=== PATIENT | female | born 1965 | race Caucasian/White ===

== ENCOUNTER 2024-09-14 11:14 | Emergency (ER) | payer MEDICARE, SELFPAY ==
[2024-09-14 11:28] VITALS: BP 131/82; PULSE 71; RESP 18; TEMP 36.7; O2SAT 97; BMI 36.1
--- NOTE | 2024-09-14 12:17 | W.ED.NAVMDI ---
HPI - Nausea/Vomiting/Diarrhea General: Chief complaint: Nausea/Vomiting/Diarrhea Stated complaint: n/v/d Time Seen by Provider: 09/14/24 12:15 History of Present Illness: 59-year-old female with a history of gastroparesis presents emergency room with complaints of persistent nausea and vomiting of bilious material. No hematochezia melena hematemesis or coffee-ground emesis. No dysuria urgency or frequency Associated nausea: Yes Associated symtoms: Reports nausea; Denies chest pain or dysuria Related Data Home Medications ?Medication ?Instructions ?Recorded ?Confirmed bupropion HCl 150 mg 24 hr tablet, 450 mg PO DAILY 09/14/24 09/14/24 extended release estradiol 1 mg tablet 1 mg PO DAILY 09/14/24 09/14/24 hydrochlorothiazide 25 mg tablet 25 mg PO DAILY 09/14/24 09/14/24 lisinopril 20 mg tablet 20 mg PO DAILY 09/14/24 09/14/24 metformin 1,000 mg tablet 1,000 mg PO BID 09/14/24 09/14/24 metoprolol succinate 25 mg 25 mg PO DAILY 09/14/24 09/14/24 tablet,extended release 24 hr nortriptyline 25 mg capsule 25 mg PO BEDTIME 09/14/24 09/14/24 ondansetron 4 mg disintegrating 4 mg PO Q6H PRN Nausea And Vomiting 09/14/24 09/14/24 tablet potassium chloride 20 mEq See Rx Instructions .Route .COMPLEX 09/14/24 09/14/24 tablet,extended release(part/cryst) rosuvastatin 5 mg tablet 5 mg PO DAILY 09/14/24 09/14/24 Previous Rx's ?Medication ?Instructions ?Recorded haloperidol 5 mg tablet 5 mg PO TID PRN nausea and 09/14/24 vomiting #10 tabs Allergies Allergy/AdvReac Type Severity Reaction Status Date / Time amoxicillin Allergy ALGY-Hives Verified 09/14/24 11:33 Cephalosporins Allergy ALGY-Hives Verified 09/14/24 11:33 chlorhexidine (From Allergy ALGY-Rash Verified 09/14/24 11:33 Hibiclens) Iodinated Contrast Media Allergy ALGY-Rash Verified 09/14/24 11:33 metoclopramide (From Reglan) Allergy ADR-Agitate Verified 09/14/24 11:33 d morphine Allergy ALGY-Hives Verified 09/14/24 11:33 Penicillins Allergy ALGY-Rash Verified 09/14/24 11:33 Review of Systems Const: Denies: fever(s) or chills Card: Denies: chest pain Resp: Denies: dyspnea GI: Reports: abdominal pain, nausea and vomiting; Denies: hematemesis, coffee ground emesis, hematochezia or melena : Denies: dysuria, urinary frequency or urinary urgency Musc: Denies: neck pain or back pain Skin/Breast: Denies: rash Physical Exam Const: GENERAL APPEARANCE: cooperative ORIENTATION/CONSCIOUSNESS: Yes awake, Yes oriented to person, Yes oriented to place and Yes oriented to time HENMT: COMMON NORMALS: normocephalic, atraumatic and hearing grossly normal bilaterally HEAD & SCALP: normocephalic and atraumatic Resp: COMMON NORMALS: normal respiratory effort, No retractions, No use of accessory muscles and clear to auscultation bilaterally AUSCULTATION: clear to auscultation bilaterally Cardio: COMMON NORMALS: regular rate, regular rhythm and No murmurs present (Cardio) RATE: regular rate RHYTHM: regular rhythm GI: COMMON NORMALS: Soft to palpation and No hepatosplenomegaly present AUSCULTATION: Yes normoactive bowel sounds PALPATION: Yes Soft to palpation, No Tenderness to palpation present (GI), No Guarding due to palpation present (GI) and Yes No hepatosplenomegaly present Extremity: COMMON NORMALS: normal to inspection, capillary refill normal, no clubbing, cyanosis or edema, no calf tenderness and no pedal edema Neuro: SENSORIUM/ORIENTATION: Yes oriented to person, Yes oriented to place and Yes oriented to time Skin: COMMON NORMALS: no rashes or lesions noted GENERAL SKIN EXAM: no rashes or lesions noted Course Vital Signs: Vital signs: Vital Signs Temperature 98.0 F 09/14/24 11:28 Pulse Rate 71 09/14/24 11:28 Respiratory Rate 18 09/14/24 11:28 Blood Pressure 131/82 09/14/24 11:28 Pulse Oximetry 97 09/14/24 11:28 Oxygen Delivery Me thod Room Air 09/14/24 11:28 MDM - Nausea/Vomiting/Diarrhea Medical Decision Making Symptoms improved some. Most of her symptoms are from her gastroparesis will discharge her home haloperidol to use as needed patient does states she is feeling somewhat better follow-up with primary care. Medical Records I reviewed the patient's medical records. Lab Data I reviewed the patient's lab results. 09/14/24 12:07 09/14/24 12:07 Laboratory Results WBC 10.40 10^3/uL (3.29-11.43) 09/14/24 12:07 RBC 4.83 10^6/uL (3.85-5.65) 09/14/24 12:07 Hgb 13.50 g/dL (11.27-16.99) 09/14/24 12:07 Hct 40.3 % (36-47) 09/14/24 12:07 MCV 83.4 fl (85-98) L 09/14/24 12:07 MCH 28.0 pg (27-33) 09/14/24 12:07 MCHC 33.5 g/dL (30-55) 09/14/24 12:07 RDW 13.4 % (12.1-15.1) 09/14/24 12:07 Plt Count 334 10^3/cmm (157-399) 09/14/24 12:07 MPV 10.1 fL (7.4-10.4) 09/14/24 12:07 Neut % (Auto) 68.1 % 09/14/24 12:07 Lymph % (Auto) 22.5 % 09/14/24 12:07 [facility] % (Auto) 7.7 % 09/14/24 12:07 Eos % (Auto) 0.9 % 09/14/24 12:07 Baso % (Auto) 0.5 % 09/14/24 12:07 Neut # (Auto) 7.09 10^3/uL (1.8-7.7) 09/14/24 12:07 Lymph # (Auto) 2.3 10^3/uL (0.8-4.8) 09/14/24 12:07 [facility] [place] # (Auto) 0.8 10^3/uL (0.2-0.9) 09/14/24 12:07 Eos # (Auto) 0.1 10^3/uL (0.0-0.8) 09/14/24 12:07 Baso # (Auto) 0.1 10^3/uL (0.0-0.1) 09/14/24 12:07 Nucleated RBC % (auto) 0 % 09/14/24 12:07 Nucleated RBCs # 0.0 /100WBC 09/14/24 12:07 Sodium 134 mmol/L (136-145) L 09/14/24 12:07 Potassium 3.8 mmol/L (3.5-5.1) 09/14/24 12:07 Chloride 95 mmol/L (98-107) L 09/14/24 12:07 Carbon Dioxide 20 mmol/L (22-29) L 09/14/24 12:07 Anion Gap 22.8 (5-19) H 09/14/24 12:07 BUN 20 mg/dL (6-20) 09/14/24 12:07 Creatinine 3.0 mg/dL (0.5-0.9) H 09/14/24 12:07 GFR Calculation 16.1 mL/min (90-130) L 09/14/24 12:07 Glucose 126 mg/dL (65-115) H 09/14/24 12:07 Calculated Osmolality 282 mOsm/kg (285-295) L 09/14/24 12:07 Calcium 10.1 mg/dL (8.5-10.5) 09/14/24 12:07 Total Bilirubin 0.7 mg/dL (0.15-1.2) 09/14/24 12:07 AST 31 U/L (0-32) 09/14/24 12:07 ALT 16 U/L (0-33) 09/14/24 12:07 Alkaline Phosphatase 80 U/L (35-105) 09/14/24 12:07 Total Protein 7.5 g/dL (6.6-8.7) 09/14/24 12:07 Albumin 4.3 g/dL (3.5-5.2) 09/14/24 12:07 Globulin 3.2 g/dL (1.3-4.6) 09/14/24 12:07 Lipase 22 U/L (13-60) 09/14/24 12:07 Urine Color Yellow (Yellow) 09/14/24 14:39 Urine Appearance Cloudy (CLEAR) A 09/14/24 14:39 Urine pH 5.0 (5-7) 09/14/24 14:39 Ur Specific [place] 1.014 (1.005-1.030) 09/14/24 14:39 Urine Protein 1+ (Negative) A 09/14/24 14:39 Urine Glucose (UA) Negative (Normal) 09/14/24 14:39 Urine Ketones Trace (Negative) 09/14/24 14:39 Urine Blood 1+ (Negative) A 09/14/24 14:39 Urine Nitrate Negative (Negative) 09/14/24 14:39 Urine Bilirubin Negative (Negative) 09/14/24 14:39 Urine Urobilinogen 1.0 mg/dL (Negative) 09/14/24 14:39 Ur Leukocyte Esterase Negative (Negative) 09/14/24 14:39 Urine RBC 0-2 /hpf (0-2) 09/14/24 14:39 Urine WBC 0-5 /hpf (0-5) 09/14/24 14:39 Ur Squamous Epith Cells 11-20 /hpf (0-5) H 09/14/24 14:39 Amorphous Sediment Not Reportable 09/14/24 14:39 Urine Bacteria None seen /hpf (NONE) 09/14/24 14:39 Hyaline Casts 57.10 /lpf 09/14/24 14:39 All radiology interpretation(s) finalized by discharge Discharge Plan Discharge Patient Disposition: Home Clinical Impression: Nausea & vomiting, Gastroparesis Condition: Stable Prescriptions: New haloperidol 5 mg tablet 5 mg PO TID PRN (Reason: nausea and vomiting) Qty: 10 0RF Rx Instructions: Can be sedating. Do not drive within 8 hours of taking No Action lisinopril 20 mg tablet 20 mg PO DAILY nortriptyline 25 mg capsule 25 mg PO BEDTIME potassium chloride 20 mEq tablet,ER particles/crystals See Rx Instructions .ROUTE .COMPLEX Rx Instructions: TAKE 2 TABLETS BY MOUTH FOR 5 DAYS THEN TAKE 1 TABLET BY MOUTH DAILY. estradiol 1 mg tablet 1 mg PO DAILY metformin 1,000 mg tablet 1,000 mg PO BID hydrochlorothiazide 25 mg tablet 25 mg PO DAILY metoprolol succinate 25 mg tablet extended release 24 hr 25 mg PO DAILY ondansetron [Zofran ODT] 4 mg Tablet,Disintegrating 4 mg PO Q6H PRN (Reason: Nausea And Vomiting) rosuvastatin 5 mg tablet 5 mg PO DAILY bupropion HCl 150 mg tablet extended release 24 hr 450 mg PO DAILY Discharge Orders: Discharge ED (Routine); Ordered 09/14/24 Ordered By: Jonathan Velasquez Referrals: Hanna Woodard MD [Primary Care Provider, Family Practice] Discharge Diet: Clear Liquid Discharge Activity: Increase activity as tolerated Patient Instructions: Opioid Safety, Pain Management Activity Restrictions/Additional Instructions: Thank you for choosing [facility] for your healthcare needs today. It is very important that you follow up as instructed or that you return to the Emergency Department should you have concerns or if your condition changes or worsens in any way. You were seen in the emergency room with persistent nausea and vomiting. Your symptoms were improved with medications given along with fluids. You are given prescriptions for orally disintegrating ondansetron to use as needed. If your symptoms do not improve with the ondansetron you were also given prescription for Haldol. You can take 1 every 8 hours as needed. You should be aware that this can make you very sedated you should not drive within 8 hours of using Print Language: Serbian Coding Level of Care Code ED [employer] Worker General for Chirag Wilkerson
[2024-09-14 12:19] LABS: Basophils # 0.1 10^3/uL (0.0-0.1); Basophils % 0.5 %; Eosinophils # 0.1 10^3/uL (0.0-0.8); Eosinophils % 0.9 %; Hematocrit 40.3 % (36-47); Lymphocytes # 2.3 10^3/uL (0.8-4.8); Lymphocytes % 22.5 %; Mean Corpuscular HGB Conc 33.5 g/dL (30-55); Mean Corpuscular Volume 83.4 fl (85-98); Mean Platelet Volume 10.1 fL (7.4-10.4); Monocytes # 0.8 10^3/uL (0.2-0.9); Monocytes % 7.7 %; Neutrophils # 7.09 10^3/uL (1.8-7.7); Neutrophils % 68.1 %; Nucleated Red Blood Cells % 0 %; Platelet Count 334 10^3/cmm (157-399); Red Blood Count 4.83 10^6/uL (3.85-5.65); Red Cell Distribution Width 13.4 % (12.1-15.1)
[2024-09-14 12:32] LABS: Alanine Aminotransferase 16 U/L (0-33); Albumin Level 4.3 g/dL (3.5-5.2); Alkaline Phosphatase 80 U/L (35-105); Anion Gap 22.8 (5-19); Aspartate Amino Transferase 31 U/L (0-32); Blood Urea Nitrogen 20 mg/dL (6-20); Calcium 10.1 mg/dL (8.5-10.5); Carbon Dioxide 20 mmol/L (22-29); Chloride 95 mmol/L (98-107); Globulin 3.2 g/dL (1.3-4.6); Glomerular Filtration Rate 16.1 mL/min (90-130); Glucose 126 mg/dL (65-115); Lipase 22 U/L (13-60); Osmolality Calculated 282 mOsm/kg (285-295); Potassium 3.8 mmol/L (3.5-5.1); Sodium 134 mmol/L (136-145); Total Bilirubin 0.7 mg/dL (0.15-1.2); Total Protein 7.5 g/dL (6.6-8.7)
[2024-09-14] MEDS: sodium chloride 0.9% 1,000 ML 999 ML IV (13:15)
[2024-09-14] MEDS: prochlorperazine 10 mg/2 mL Inj IVP (13:15)
--- NOTE | 2024-09-14 13:17 | PC.PHAR ---
Several descrepancies between pts' rx list and pharmacy list. Verified with [facility] [phone]. See pharmacy notes for changes.
[2024-09-14 14:54] LABS: Bilirubin Urine Negative (Negative); Blood Urine 1+ (Negative); Glucose Urine UA Negative (Normal); Ketones Urine Trace (Negative); Leukocyte Esterase Urine Negative (Negative); Nitrate Urine Negative (Negative); Protein Urine 1+ (Negative); Specific Gravity, Urine 1.014 (1.005-1.030); Urine Appearance Cloudy (CLEAR); Urine Color Yellow (Yellow)
[2024-09-14 14:59] LABS: Add Urine Microscopic? YES; Bacteria Urine None Seen /hpf; RBC Urine 0-2 /hpf (0-2); WBC Urine 0-5 /hpf (0-5)
== END 2024-09-14 15:14 | disposition home or self-care (01) ==
PROVIDERS: Emergency Provider Family Medicine; PCP Family Medicine
DX: R11.2 Nausea with vomiting, unspecified (principal); K31.84 Gastroparesis; Z79.84 Long term (current) use of oral hypoglycemic drugs
CPT/HCPCS: 80053; 81001; 83690; 85025; 96374; 99284; J0780; J7030